=== PATIENT | female | born 1990 | race Caucasian/White ===

== ENCOUNTER → 2017-08-15 18:37 | Outpatient (CLI) | payer BC, SELFPAY ==
[2017-08-20 13:41] LABS: HPV Reflexed? NOT INDICATED
== END ==
PROVIDERS: Visit Provider Obstetrics & Gynecology
DX: Z12.4 Encounter for screening for malignant neoplasm of cervix (principal)
CPT/HCPCS: 88175; G0145

== ENCOUNTER → 2019-03-02 | Outpatient (CLI) | payer BC, SELFPAY ==
[2017-08-15 14:15] VITALS: BMI 21.4
--- NOTE | 2019-03-02 10:10 | US_ITS ---
STUDY: ABDOMINAL ULTRASOUND - RIGHT UPPER QUADRANT REASON FOR VISIT: Female, 28 years old. Elevated liver enzymes TECHNIQUE: Ultrasound evaluation of the right upper quadrant was performed with real-time and static pritchett-scale imaging. TECHNICAL QUALITY: Adequate. COMPARISON: None. FINDINGS: Liver: The liver measures 14.9 cm. There is normal echogenicity of the liver. The bile ducts are within normal limits. There is hepatic color flow. The direction of portal flow is hepatopetal. There is no demonstrated mass lesion. Gallbladder: Normal distended gallbladder. The gallbladder wall measures 2 mm. There is a negative sonographic Beckett's sign. There is no pericholecystic fluid. There are no gallstones. Common Bile Duct (C.B.D.): The common bile duct measures 3 mm. Pancreas: Normal size of the head, body and tail of the pancreas. There is normal echogenicity of the pancreas. There is no demonstrated pancreatic mass or cyst. Right Kidney: Normal size of the right kidney. The right kidney measures 10.8 x 5.8 x 4.0 cm. Normal renal cortex. The right cortex measures 1.9 cm. There is no demonstrated renal mass or cyst. There is no right hydronephrosis. US/Liver IMPRESSION: Normal right upper quadrant ultrasound examination. Electronically Signed: Jasiel Hannah, at 20:49 EDT Tel , Service support ,
== END | disposition home or self-care (01) ==
LOC: US 10:08
PROVIDERS: Family Provider Nurse Practitioner; PCP Nurse Practitioner; Referring Provider Nurse Practitioner; Visit Provider Nurse Practitioner
DX: R74.8 Abnormal levels of other serum enzymes (principal)
CPT/HCPCS: 76705

== ENCOUNTER → 2020-02-01 | Outpatient (CLI) | payer BC, SELFPAY ==
[2019-12-24 15:21] VITALS: BMI 21.2
[2020-02-01 18:12] LABS: Internal QC Validated? YES +Cl - CLEAR BKGD; Pregnancy, Serum, hCG Quali. NEGATIVE Negative
[2020-02-01 18:24] LABS: AST(SGOT) 64 U/L (15-37); Alanine Aminotransfer ALT/SGPT 20 U/L (13-56); Cholesterol 206 mg/dL (200); High Density Lipoprotein 75 mg/dL; Triglycerides 135 mg/dL; Very Low Density Lipoprotein 27 mg/dL (5-40)
== END | disposition home or self-care (01) ==
LOC: MTLAB 16:32
PROVIDERS: PCP Nurse Practitioner; Referring Provider Dermatology; Visit Provider Dermatology
DX: Z79.899 Other long term (current) drug therapy (principal); L70.8 Other acne
CPT/HCPCS: 36415; 80061; 84450; 84460; 84703

== ENCOUNTER → 2021-03-07 12:08 | Outpatient (CLI) | payer OTHER, SELFPAY ==
[2021-03-07 15:53] LABS: Internal QC Validated? YES +Cl - CLEAR BKGD; Pregnancy, Urine Negative Negative
== END ==
PROVIDERS: PCP Nurse Practitioner; Referring Provider Dermatology; Visit Provider Dermatology
DX: Z79.899 Other long term (current) drug therapy (principal)
CPT/HCPCS: 81025

== ENCOUNTER → 2021-04-07 16:32 | Outpatient (CLI) | payer OTHER, SELFPAY ==
[2021-04-07 17:48] LABS: Internal QC Validated? YES +Cl - CLEAR BKGD; Pregnancy, Urine Negative Negative
== END ==
PROVIDERS: PCP Nurse Practitioner; Referring Provider Dermatology; Visit Provider Dermatology
DX: Z79.899 Other long term (current) drug therapy (principal)
CPT/HCPCS: 81025

== ENCOUNTER → 2021-05-01 14:39 | Outpatient (CLI) | payer OTHER, SELFPAY ==
[2021-05-01 18:11] LABS: Internal QC Validated? YES +Cl - CLEAR BKGD; Pregnancy, Urine Negative Negative
== END ==
PROVIDERS: PCP Nurse Practitioner; Referring Provider Dermatology; Visit Provider Dermatology
DX: Z79.899 Other long term (current) drug therapy (principal); L70.8 Other acne; K13.0 Diseases of lips
CPT/HCPCS: 81025

== ENCOUNTER 2021-06-02 14:34 | Outpatient (CLI) | payer BC, SELFPAY ==
[2021-06-02 18:12] LABS: AST(SGOT) 83 U/L (15-37); Alanine Aminotransfer ALT/SGPT 22 U/L (13-56); Cholesterol 199 mg/dL (200); High Density Lipoprotein 74 mg/dL; Triglycerides 97 mg/dL; Very Low Density Lipoprotein 19 mg/dL (5-40)
[2021-06-02 18:14] LABS: hCG Titer Quant., Serum < 1 mIU/mL (1-3)
[2021-06-06 12:52] LABS: LDL, Direct 120295 112 mg/dL (0-99)
== END 2021-06-02 23:59 | disposition short-term general hospital (02) ==
LOC: MTLAB 14:36
PROVIDERS: PCP Nurse Practitioner; Referring Provider Dermatology; Visit Provider Dermatology
DX: L70.8 Other acne (principal); K13.0 Diseases of lips; Z79.899 Other long term (current) drug therapy
CPT/HCPCS: 36415; 80061; 83721; 84450; 84460; 84702

== ENCOUNTER 2021-07-06 14:13 | Outpatient (CLI) | payer BC, SELFPAY ==
[2021-07-06 16:02] LABS: AST(SGOT) 69 U/L (15-37); Alanine Aminotransfer ALT/SGPT 18 U/L (13-56)
[2021-07-06 16:15] LABS: Internal QC Validated? YES +Cl - CLEAR BKGD; Pregnancy, Serum, hCG Quali. NEGATIVE Negative
== END 2021-07-06 23:59 | disposition home or self-care (01) ==
PROVIDERS: PCP Nurse Practitioner; Referring Provider Dermatology; Visit Provider Dermatology
DX: L70.8 Other acne (principal); K13.0 Diseases of lips; Z79.899 Other long term (current) drug therapy
CPT/HCPCS: 36415; 84450; 84460; 84703

== ENCOUNTER 2021-08-07 15:46 | Outpatient (CLI) | payer BC, SELFPAY ==
[2021-08-07 18:20] LABS: Internal QC Validated? YES +Cl - CLEAR BKGD; Pregnancy, Urine Negative Negative
== END 2021-08-07 23:59 | disposition home or self-care (01) ==
LOC: MTLAB 15:47
PROVIDERS: PCP Nurse Practitioner; Referring Provider Dermatology; Visit Provider Dermatology
DX: L70.8 Other acne (principal); K13.0 Diseases of lips; Z79.899 Other long term (current) drug therapy
CPT/HCPCS: 81025

== ENCOUNTER → 2021-09-04 | Outpatient (CLI) | payer BC, SELFPAY ==
[2021-09-04 10:07] LABS: Internal QC Validated? YES +Cl - CLEAR BKGD; Pregnancy, Urine Negative Negative
== END | disposition home or self-care (01) ==
PROVIDERS: PCP Nurse Practitioner; Referring Provider Dermatology; Visit Provider Dermatology
DX: L70.8 Other acne (principal); K13.0 Diseases of lips; Z79.899 Other long term (current) drug therapy
CPT/HCPCS: 81025